=== PATIENT | male | born 1945 | race Caucasian/White ===

== ENCOUNTER → 2020-12-20 | Outpatient (CLI) | payer MEDICARE, OTHER ==
[~2020-12-20] MED LIST: CEPH500 PO; ESOM20; HYDACE5 PO; SULTRIDS PO
== END | disposition home or self-care (01) ==
LOC: LAB SHORT 15:01 → LAB 15:01
DX: K52.9 Noninfective gastroenteritis and colitis, unspecified (principal)
CPT/HCPCS: 87338

== ENCOUNTER → 2022-07-23 | Outpatient (CLI) | payer MEDICARE, OTHER | END | disposition home or self-care (01) | LOC: LAB SHORT 16:49 → LAB 16:49 | DX: N39.0 Urinary tract infection, site not specified (principal) | CPT/HCPCS: 87086 ==

== ENCOUNTER → 2023-02-19 | Outpatient (CLI) | payer MEDICARE, OTHER | LOC: LAB SHORT 08:11 → PLD 08:11 | DX: C44.622 Squamous cell carcinoma of skin of right upper limb, including shoulder (principal) | CPT/HCPCS: 88305 ==

== ENCOUNTER 2023-07-20 11:26 | Emergency (ER) | payer MEDICARE, OTHER ==
[~2023-07-20] VITALS: Ht 175.3 cm; Wt 86.2 kg
[2023-07-20 11:33] VITALS: BP 144/98
[2023-07-20 12:33] LABS: Influenza A, PCR NEGATIVE (NEGATIVE); Influenza B, PCR NEGATIVE (NEGATIVE); Resp Syncytial Virus, PCR NEGATIVE (NEGATIVE); SARS-Cov-2 (COVID-19) PCR, MMC NEGATIVE (NEGATIVE)
[2023-07-20] MEDS ORDERED: AMOCLA875 PO (12:54)
[2023-07-20] MEDS ORDERED: Tessalon200 MG PO (12:54)
== END 2023-07-20 13:04 | disposition home or self-care (01) ==
LOC: ER 11:26
PROVIDERS: Physician Assistant
DX: J18.9 Pneumonia, unspecified organism (principal); J44.1 Chronic obstructive pulmonary disease with (acute) exacerbation; Z87.891 Personal history of nicotine dependence
CPT/HCPCS: 0241U; 71046; 99283-25

== ENCOUNTER 2023-10-11 06:46 | Emergency (ER) | payer MEDICARE, OTHER ==
[~2023-10-11] VITALS: Ht 175.3 cm; Wt 88.5 kg
[~2023-10-11 06:46] MED LIST changes: +AMOCLA875 PO; +Tessalon200 MG PO
[2023-10-11] MEDS ORDERED: RX Prepack Albuterol 1 PREPACK/6.7 GM INH UD ONE (07:50)
[2023-10-11 07:55] LABS: Influenza B, PCR NEGATIVE (NEGATIVE); Resp Syncytial Virus, PCR NEGATIVE (NEGATIVE); SARS-Cov-2 (COVID-19) PCR, MMC NEGATIVE (NEGATIVE)
[2023-10-11 08:04] LABS: Influenza A, PCR POSITIVE (NEGATIVE)
[2023-10-11] MEDS ORDERED: OSEL75CA PO (08:44)
[2023-10-11 09:02] VITALS: BP 167/86
== END 2023-10-11 09:21 | disposition home or self-care (01) ==
LOC: ER 06:46
PROVIDERS: Emergency Medicine
DX: J10.1 Influenza due to other identified influenza virus with other respiratory manifestations (principal); J98.01 Acute bronchospasm; Z79.899 Other long term (current) drug therapy
CPT/HCPCS: 0241U; 71046; 99283-25; A9270

== ENCOUNTER 2024-03-05 13:26 | Emergency (ER) | payer MEDICARE, OTHER ==
[~2024-03-05] VITALS: Ht 175.3 cm; Wt 90.7 kg
[~2024-03-05 13:26] MED LIST changes: +OSEL75CA PO
[2024-03-05 13:37] VITALS: BP 170/86
== END 2024-03-05 14:50 | disposition home or self-care (01) ==
LOC: ER 13:26
DX: R61 Generalized hyperhidrosis (principal); Z79.899 Other long term (current) drug therapy; Z59.89 Other problems related to housing and economic circumstances
CPT/HCPCS: 93005; 93010; 99283-25

== ENCOUNTER 2024-03-07 10:56 | Day surgery (SDC) | payer MEDICARE, OTHER ==
[~2024-03-07] VITALS: Ht 175.3 cm; Wt 90.5 kg
[~2024-03-07 10:56] MED LIST changes: +Balanced Salt Epinephrine Irrigation Solution 500 mL IR SCH; +Lidocaine HCl/Pf 1% 5 ML VIAL XX SCH; +Moxifloxacin HCL 0.5 MG/0.1 ML 0.4MLSYR RIGHTEYE SCH; +PHENYLEPHRINE\\TROPICAMIDE\\TETRACAINE OPHTHALMIC DILATING SOLN RIGHTEYE PRN; +Povidone-Iodine 450 DROP/30 ML Solution ONE; +Povidone-Iodine 450 DROP/30 ML Solution RIGHTEYE SCH; +Tetracaine HCl/Pf 0.5% Opth Soln 4 ml ONE
--- NOTE | 2024-03-07 11:27 | NUR ---
03/07/[address] [address] NOTIFIED THAT PATIENT WENT TO ER 03/05/24 FOR PROFUSE SWEATING WITH SOME CHEST PAIN THAT HE STATES HE "HAS HAD MANY TIMES" BUT HE STATES HE GETS THIS CHEST PAIN FROM HIS CHEST MUSCLES, USUALLY GOES AWAY IF HE LIES DOWN FLAT. LASTS FOR VARYING AMOUNT OF TIME, COMES AND GOES. PT DENIES HEART PALPITATIONS, HEAVINESS IN CHEST, NO CHEST PAIN AT THIS TIME. 3 LEAD EKG COMPLETED.
[2024-03-07] MEDS ORDERED: Midazolam HCl 1MG / ML 2ML Vial ONE (11:50)
[2024-03-07 12:52] VITALS: BP 161/81
== END 2024-03-07 12:48 | disposition home or self-care (01) ==
LOC: ORSCSDS 10:56
PROVIDERS: Student in an Organized Health Care Education/Training Program
PROC: 08RJ3JZ Replacement of Right Lens with Synthetic Substitute, Percutaneous Approach (ICD-10-PCS; principal; 2024-03-07 12:30)
DX: H25.811 Combined forms of age-related cataract, right eye (principal); H52.201 Unspecified astigmatism, right eye; H26.8 Other specified cataract; Z96.1 Presence of intraocular lens; E78.5 Hyperlipidemia, unspecified; I10 Essential (primary) hypertension; K21.9 Gastro-esophageal reflux disease without esophagitis; Z79.899 Other long term (current) drug therapy
CPT/HCPCS: J2250; V2632

== ENCOUNTER → 2024-04-24 | Outpatient (CLI) | payer MEDICARE, OTHER ==
[~2024-04-24] MED LIST changes: -Balanced Salt Epinephrine Irrigation Solution 500 mL IR SCH; -Lidocaine HCl/Pf 1% 5 ML VIAL XX SCH; -Moxifloxacin HCL 0.5 MG/0.1 ML 0.4MLSYR RIGHTEYE SCH; -PHENYLEPHRINE\\TROPICAMIDE\\TETRACAINE OPHTHALMIC DILATING SOLN RIGHTEYE PRN; -Povidone-Iodine 450 DROP/30 ML Solution ONE; -Povidone-Iodine 450 DROP/30 ML Solution RIGHTEYE SCH; -Tetracaine HCl/Pf 0.5% Opth Soln 4 ml ONE
[2024-04-24 14:30] LABS: Stool Occult Bld Immuno 1 Negative (NEGATIVE)
== END ==
LOC: LAB 08:30 → LAB SHORT 08:30
PROVIDERS: Physician Assistant Medical
DX: R19.5 Other fecal abnormalities (principal)
CPT/HCPCS: G0328

== ENCOUNTER 2024-06-02 12:04 | Day surgery (SDC) | payer MEDICARE, OTHER ==
[~2024-06-02] VITALS: Ht 175.3 cm; Wt 89.1 kg
[~2024-06-02 12:04] MED LIST changes: +Lactated Ringer's 1,000 ML IV ONE; +propofoL 50 ML IV ONE
[2024-06-02] MEDS ORDERED: ALBU90OI (12:23)
[2024-06-02] MEDS ORDERED: EPINEPHRIN0.15 MG/03 (12:23)
[2024-06-02] MEDS ORDERED: MIRALAX17 GM (12:23)
[2024-06-02] MEDS ORDERED: Lactated Ringer's 1,000 ML IV ONE (13:28)
[2024-06-02] MEDS ORDERED: propofoL 50 ML IV ONE (14:10)
[2024-06-02 15:28] VITALS: BP 142/80
== END 2024-06-02 15:20 | disposition home or self-care (01) ==
LOC: ORSCSDS 12:04
PROVIDERS: Internal Medicine Gastroenterology
PROC: 0DB78ZX Excision of Stomach, Pylorus, Via Natural or Artificial Opening Endoscopic, Diagnostic (ICD-10-PCS; principal; 2024-06-02 14:00)
PROC: 0DBL8ZX Excision of Transverse Colon, Via Natural or Artificial Opening Endoscopic, Diagnostic (ICD-10-PCS; principal; 2024-06-02 14:00)
PROC: 0DB98ZX Excision of Duodenum, Via Natural or Artificial Opening Endoscopic, Diagnostic (ICD-10-PCS; principal; 2024-06-02 14:00)
PROC: 0DBH8ZX Excision of Cecum, Via Natural or Artificial Opening Endoscopic, Diagnostic (ICD-10-PCS; principal; 2024-06-02 14:00)
DX: K21.9 Gastro-esophageal reflux disease without esophagitis (principal); Z12.11 Encounter for screening for malignant neoplasm of colon; Z86.0101 Personal history of adenomatous and serrated colon polyps; K31.7 Polyp of stomach and duodenum; K29.70 Gastritis, unspecified, without bleeding; D12.0 Benign neoplasm of cecum; K63.5 Polyp of colon; R10.13 Epigastric pain; K44.9 Diaphragmatic hernia without obstruction or gangrene; K64.8 Other hemorrhoids; Z79.899 Other long term (current) drug therapy; E78.5 Hyperlipidemia, unspecified; Z87.891 Personal history of nicotine dependence
CPT/HCPCS: 88305; 88342; J2704; J7120